=== PATIENT | female | born 1960 ===

== ENCOUNTER 2018-08-11 07:17 | Day surgery (SDC) | payer BC ==
[2018-08-11] VITALS (7 sets, daily range): BP systolic 100–114; BP diastolic 64–83
[~2018-08-11] VITALS: Ht 170.2 cm; Wt 71.2 kg
[2018-08-11] MEDS ORDERED: WELLBUTRIN XL150 MG ORAL (08:02)
--- NOTE | 2018-08-11 08:34 | Pre-Procedure Note/Attestation ---
Pre-Procedure Note/Attestation Complete Prior to Procedure Planned Procedure: not applicable Procedure Narrative: colonoscopy Indications for Procedure Pre-Operative Diagnosis: screening Attestation I attest that I discussed the nature of the procedure; its benefits; risks and complications; and alternatives (and the risks and benefits of such alternatives ), prior to the procedure, with the patient (or the patient's legal technical sales representative). I attest that, if there was a reasonable possibility of needing a blood transfusion, the patient (or the patient's legal technical sales representative) was given the [facility] standardized written summary, pursuant to the [place] Blood Safety Act ([place] Health and Safety Code # 1645, as amended). I attest that I re-evaluated the patient just prior to the surgery and that there has been no change in the patient's H&P, except as documented below: Clem Rausch MD Aug 11, 2018 08:34
--- NOTE | 2018-08-11 08:36 | Short Stay Surgery H&P ---
History of Present Illness History of Present Illness Chief Complaint screening colon HPI Rubi Pop is a 57 year old female who was admitted on for Colon Screening Patient History Allergies: Coded Allergies: Cultivated Oat Pollen (Verified Allergy, Intermediate, sneezing; watery eyes, 08/11/18) PENICILLINS (Verified Allergy, Intermediate, rash, 08/11/18) PAST MEDICAL HISTORY: (1) Depression (2) CVA (cerebral vascular accident) Medication History Scheduled Bupropion Hcl* (Wellbutrin Xl*), 150 MG ORAL DAILY, (Reported) Review of Systems Cardiovascular: Reports: no symptoms Skeletal: Reports: no symptoms Gastrointestinal: Reports: no symptoms Genitourinary: Reports: no symptoms Neurologic: Reports: no symptoms Hematologic: Reports: no symptoms Physical Exam Vital Signs Last Vital Signs Date Time Temp Pulse Resp B/P (MAP) Pulse Ox O2 Delivery O2 Flow Rate FiO2 08/11/18 07:57 97.6 79 18 114/83 99 Room Air Skin: normal HENT: normal Heart: normal Lungs: normal Abdomen: normal Extremities: normal Plan Plan of Care colonoscopy Attestation Are the patient's medical conditions optimized for surgery? Attestation Response: yes Clem Rausch MD Aug 11, 2018 08:36
--- NOTE | 2018-08-11 08:48 | Anethesia Preoperative Eval ---
Anesthesia Pre-op PMH/ROS General Date of Evaluation: Aug 11, 2018 Time of Evaluation: 08:25 Anesthesiologist: Wai ASA Score: ASA 2 Mallampati Score Class I : Soft palate, uvula, fauces, pillars visible Class II: Soft palate, uvula, fauces visible Class III: Soft palate, base of uvula visible Class IV: Only hard plate visible Mallampati Classification: Class II Surgeon: Shalom Diagnosis: Colon CA screening Surgical Procedure: Colonoscopy Anesthesia History: none Family History: no anesthesia problems Allergies: Coded Allergies: Cultivated Oat Pollen (Verified Allergy, Intermediate, sneezing; watery eyes, 08/11/18) PENICILLINS (Verified Allergy, Intermediate, rash, 08/11/18) Medications: see eMAR Patient NPO?: Yes Past Medical History Cardiovascular: Denies: HTN, CAD, RI, valve dz, arrhythmia, other Pulmonary: Denies: asthma, COPD, LYNETTE, other Gastrointestinal/Genitourinary: Reports: GERD; Denies: CRI, ESRD, other Neurologic/Psychiatric: Denies: dementia, CVA, depression/anxiety, TIA, other Endocrine: Denies: DM, hypothyroidism, steroids, other HEENT: Denies: cataract (L), cataract (R), glaucoma, RUBY (L), RUBY (R), other Hematology/Immune: Reports: other - hypercoagulative state; Denies: anemia, DVT, bleeding disorder Musculoskeletal/Integumentary: Denies: OA, RA, DJD, DDD, edema, other Anesthesia Pre-op Phys. Exam Physician Exam Last Vital Signs Date Time Temp Pulse Resp B/P (MAP) Pulse Ox O2 Delivery O2 Flow Rate FiO2 08/11/18 08:00 Room Air 08/11/18 07:57 97.6 79 18 114/83 99 Airway Exam Mallampati Score: Class II Anesthesia Pre-op A/P Risk Assessment & Plan Assessment: ASA 2 Plan: MAC Status Change Before Surgery: Tom Leija MD Aug 11, 2018 08:48
[2018-08-11] MEDS ORDERED: Propofol 200mg/20ml IV ONE (08:50)
[2018-08-11] MEDS ORDERED: Midazolam 2mg/2ml Inj ONE (08:50)
[2018-08-11] MEDS ORDERED: fentaNYL 100 mcg/2 mL IV ONE (08:50)
[2018-08-11 08:52] LABS: BASOPHILS % (AUTO) 1.9 % (0.0-2.0); EOSINOPHILS % (AUTO) 3.9 % (0.0-3.0); HEMATOCRIT 46.8 % (37.0-47.0); LYMPHOCYTES % (AUTO) 28.7 % (20.0-45.0); MEAN CORPUSCULAR VOLUME 92 FL (80-99); MONOCYTES % (AUTO) 10.5 % (1.0-10.0); NEUTROPHILS % (AUTO) 55.1 % (45.0-75.0); PLATELET COUNT 282 K/UL (150-450); RED BLOOD COUNT 5.06 M/UL (4.20-5.40); RED CELL DISTRIBUTION WIDTH 11.3 % (11.6-14.8); WHITE BLOOD COUNT 3.8 K/UL (4.8-10.8)
[2018-08-11] MEDS ORDERED: fentaNYL 100 mcg/2 mL IV PRN (09:00)
[2018-08-11 09:03] LABS: % IRON SATURATION 37 % (15-50); CHOLESTEROL 266 MG/DL (< 200); HDL CHOLESTEROL 89 MG/DL (40-60); IRON 105 ug/dL (50-175); TOTAL IRON BINDING CAPACITY 288 ug/dL (250-450); TRIGLYCERIDES 51 MG/DL (30-150)
--- NOTE | 2018-08-11 09:03 | Endoscopy Procedure Note ---
Endoscopy Procedure Note General Indication for Procedure: screening Procedures Performed: colonoscopy Operative Findings/Diagnosis: 3 polyps Specimen: yes Pt Tolerated Procedure Well: Yes Estimated Blood Loss: none Anesthesia Anesthesiologist: chasidy Anesthesia: MAC Inserted Devices Implant(s) used?: No Quality Quality of Bowel Preparation: Excellent Did scope reach the cecum?: Yes Was there any complications?: No GI Core Measures 50 yrs or older w/o bx or poly: No 10yrs. F/U not recommended: Yes If not recommended, why?: Above average risk 10 yrs. F/U needed: Yes 18 years or older w/prev. colo: No Clem Rausch MD Aug 11, 2018 09:03
[2018-08-11 09:04] LABS: ALANINE AMINOTRANSFERASE 46 U/L (12-78); ALBUMIN 4.1 G/DL (3.4-5.0); ALKALINE PHOSPHATASE 77 U/L (46-116); ASPARTATE AMINO TRANSFERASE 26 U/L (15-37); BILIRUBIN,DIRECT < 0.1 MG/DL (0.0-0.3); BILIRUBIN,TOTAL 0.4 MG/DL (0.2-1.0)
--- NOTE | 2018-08-11 09:11 | Immediate Post-Op Evaluation ---
Immediate Post-Op Evalulation Immediate Post-Op Evalulation Procedure: Colonoscopy Date of Evaluation: Aug 11, 2018 Time of Evaluation: 09:09 IV Fluids: 500 Blood Products: none Estimated Blood Loss: min Urinary Output: none Blood Pressure Systolic: 102 Blood Pressure Diastolic: 56 Pulse Rate: 64 Respiratory Rate: 2 O2 Sat by Pulse Oximetry: 98 Temperature (Fahrenheit): 97.6 Pain Score (1-10): 1 Nausea: No Vomiting: No Complications none Patient Status: awake, patent, none Hydration Status: adequate Tom Carreno MD Aug 11, 2018 09:11
--- NOTE | 2018-08-11 09:53 | 48 Hour Post Anesthesia Eval ---
Post Anesthesia Evaluation Procedure: Colonoscopy Date of Evaluation: Aug 11, 2018 Time of Evaluation: 09:52 Blood Pressure Systolic: 108 0: 57 Pulse Rate: 64 Respiratory Rate: 22 Temperature (Fahrenheit): 97.6 O2 Sat by Pulse Oximetry: 98 Airway: patent Nausea: No Vomiting: No Pain Intensity: 1 Hydration Status: adequate Cardiopulmonary Status: stable Mental Status/LOC: patient returned to baseline Follow-up Care/Observations: n/a Post-Anesthesia Complications: none Follow-up care needed: ready to discharge Tom Carreno MD Aug 11, 2018 09:53
--- NOTE | 2018-08-11 16:45 | Procedure Note ---
DATE OF PROCEDURE: 08/11/2018 SURGEON: Clem Rausch M.D. PROCEDURE: Colonoscopy with biopsy. ANESTHESIA: Per Tom Carreno M.D. INSTRUMENT: Olympus adult flexible colonoscope. INDICATION: Screening colonoscopy evaluation. REASON FOR PROCEDURE: The procedure, risks, benefits, and possible consequences, including hemorrhage, aspiration, perforation and infection, and alternative treatments, were explained to the patient/legal guardian by Dr. Clem Rausch and the patient/legal guardian understood and accepted these risks. DESCRIPTION OF PROCEDURE: After informed consent was obtained and the patient was adequately sedated, first rectal exam was performed which was normal. Then, the scope was advanced from rectum into the cecum documented by appendiceal orifice, ileocecal valve, and right upper quadrant palpation. Quality of prep was very good. The patient had total of three polyps in this colonoscopy examination, one in the proximal ascending colon, one in transverse colon, and one in the sigmoid colon. The one in the ascending colon roughly measured about 3 mm, one in the transverse colon was roughly about 5 mm, and one in the sigmoid was about 3 mm. All these polyps were removed with cold biopsy forceps technique. The patient had evidence of scattered diverticulosis in the left colon without any obvious diverticulitis. On the retroflexion of rectum showed the patient had few medium-sized nonbleeding internal hemorrhoids. SUMMARY OF FINDINGS: 1. Three colonic polyps, see above for details. 2. Diverticulosis. 3. Internal hemorrhoids. RECOMMENDATIONS: 1. Follow up pathology. Given 3 polyps, we recommend repeat colonoscopy in 3 years. 2. In terms of hemorrhoids if become symptomatic, we would recommend treatment. Clem Rausch M.D. DR: Ralf JOB#: [id number] CC:
--- NOTE | 2018-08-15 19:14 | Cardiology Report ---
APPROVED REPORT EKG Measurement Heart [id number] Sinus rhythm with 1st degree AV block Otherwise normal ECG
== END 2018-08-11 10:00 | disposition home or self-care (01) ==
LOC: GAS 07:17
DX: Z12.11 Encounter for screening for malignant neoplasm of colon (principal); K63.5 Polyp of colon; K57.30 Diverticulosis of large intestine without perforation or abscess without bleeding; K64.8 Other hemorrhoids; F32.9 Major depressive disorder, single episode, unspecified; Z86.73 Personal history of transient ischemic attack (TIA), and cerebral infarction without residual deficits; Z88.0 Allergy status to penicillin; K21.9 Gastro-esophageal reflux disease without esophagitis; D12.3 Benign neoplasm of transverse colon
CPT/HCPCS: 36415; 45380; 80061; 80076; 83540; 83550; 85025; 93005; J2250; J2704; J3010; 86705; 86709; 86803; 87340; 94003; 94150